=== PATIENT | male | born 1955 ===

== ENCOUNTER 2024-05-13 01:08 | Emergency (ER) | payer MEDICARE, SELFPAY ==
[2024-05-13] VITALS (7 sets, daily range): BP systolic 116–143; BP diastolic 66–100; PULSE 70–97; RESP 13–18; TEMP 36.6; O2SAT 92–98
--- NOTE | ~2024-05-13 | CT_ITS ---
EXAMINATION: CT cervical spine wo con DATE: 05/13/2024 03:22 INDICATION: Head injury. TECHNIQUE: Computed tomography (CT) of the cervical spine was performed without intravenous contrast. Automated exposure control and iterative reconstruction technique were employed. The dose-length pro duct was 556.11 mGy-cm. COMPARISON: None FINDINGS: There is kyphosis of cervical spine. There is 9 degrees dextrocurvature of cervical spine. Vertebral body heights are normal. C1 ring is ununited posteriorly, a normal variant. There is mildly decreased disc height at C3-C4, severely decreased disc height from C4-C5 through C6-C7, and mildly decreased disc height at C7-T1. The following disc levels are specifically discussed: C2-C3: There is no uncovertebral joint osteoarthritis. There is ankylosis of left facet joint with mi ld hypertrophy. There is mild left neural foraminal stenosis. There is no central canal stenosis. C3-C4: There is severe bilateral uncovertebral joint osteoarthritis. There is severe right and mild l eft facet joint osteoarthritis. There is moderate right and mild left neural foraminal stenosis. Ther e is mild central canal stenosis. C4-C5: There is severe bilateral uncovertebral joint osteoarthritis. There is moderate right and mild left facet joint osteoarthritis. There is mild bilateral neural foraminal stenosis. There is mild ce ntral canal stenosis. C5-C6: There is severe bilateral uncovertebral joint osteoarthritis. There is moderate bilateral face t joint osteoarthritis. There is mild right and moderate left neural foraminal stenosis. There is mil d central canal stenosis. C6-C7: There is severe bilateral uncovertebral joint osteoarthritis. There is mild right and moderate left facet joint osteoarthritis. There is moderate bilateral neural foraminal stenosis. There is mil d central canal stenosis. C7-T1: There is mild bilateral uncovertebral joint osteoarthritis. There is moderate right and severe left facet joint osteoarthritis. There is mild left neural foraminal stenosis. There is no central c anal stenosis. IMPRESSION: 1. No fracture. 2. Severe cervical spondylosis. Reviewed, dictated and finalized at location A. CHISE MANAGER
--- NOTE | ~2024-05-13 | CT_ITS ---
EXAMINATION: CT brain wo con DATE: 05/13/2024 03:21 INDICATION: Head injury. TECHNIQUE: Computed tomography (CT) of the head was performed without intravenous contrast. The mA wa s adjusted according to patient size. Iterative reconstruction technique was employed. The dose-lengt h product was 756.67 mGy-cm. COMPARISON: None FINDINGS: There are scattered areas of low attenuation in the cerebral white matter. There is no intr acranial hemorrhage, acute infarction, or abnormal intracranial mass lesion. The ventricles are yodit l in size. There is mucosal thickening in the paranasal sinuses. The mastoid air cells are normal. Th e orbits are normal. IMPRESSION: 1. Moderate nonspecific cerebral white matter disease, which likely represents chronic small vessel i schemic disease. Reviewed, dictated and finalized at location A. E GLAZER IMPRESSION: 1. Moderate nonspecific cerebral white matter disease, which likely represents chronic small vessel ischemic disease.
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
[2024-05-13 05:54] LABS: Ethanol 200 mg/dL (<10)
[2024-05-13 10:12] LABS: Ethanol 128 mg/dL (<10)
--- NOTE | 2024-05-13 11:58 | PC.NURSE ---
Patient's family contacted to take him home, up for discharge now.
--- OUTSIDE RECORDS SUMMARY | 2024-05-19 04:58 | XMS_ITS | Data Portability ---
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 [facility] YESSICA CRAFT Access ion #: [id number] Sex: M : 1954 5 Exam Date: 2020 4:48 PM Exam Name: CT HIP RT WO Admitt ing Diagno sis(es ): FINDIN GS: There is no fractu re involv ing the right hip. The right hip joint is intact . The imaged femur and portio ns of the right hemipe lvis are intact . There is some soft tissue strand ing likely from bruisi ng around the right gluteu s maximu s muscle and latera l hip soft tissue s withou t identi fiable discre te hemorr ale or mass. There is incide ntal note of divert iculos is withou t eviden ce of divert iculit is. IMPRES NELLY: 1. No acute fractu re noted. 2. Mild soft tissue strand ing is seen about the hip likely from bruisi ng. No discre te fluid collec tion is noted. Create d and electr onical ly signed by: Rohit Norwood ch, DO Signed Date: 2020 5:53 PM (CT) Dictat ed by: Rohit Norwood ch, DO DD: 2020 5:53 PM (CT) DT: 2020 5:53 PM (CT) Page 2 of 2 [id number] [facility] (Imaging) [address] [place] [address], [address], 06/25/2022 15:44:46 04/16/20 CT, head, w/o contr ast [facility] [address] [address] [phone] Patibeth t Name: YESSICA CRAFT Access ion #: [id number] Sex: M : 1954 6 Locati on: RA2 Attend ing Physic maura: FELICITA LOUIS CE Orderi ng Physic maura: FELICITA LOUIS CE Exam Date: 2020 4:48 PM Exam Name: CT HEAD WO Admitt ing Diagno sis(es ): RADIOL OGY REPORT - FINAL EXAM: CT HEAD WO HISTOR Y: assaul t COMPAR FAHAD: None TECHNI QUE: Noncon trast axial CT images of the head were perfor med. Sagitt al and slaughter l reform atted images were obtain ed. This CT exam was perfor med using 1 or more of the follow ing dose reduct ion techni ques: Automa mary exposu re contro l, Page 1 of 3 [facility] Patibeth t Name: YESSICA CRAFT Access ion #: [id number] Sex: M : 1954 5 Exam Date: 2020 4:48 PM Exam Name: CT HEAD WO Admitt ing Diagno sis(es ): adjust ment of the mA and/or kv accord ing to patien t size, or the use of iterat renard recons tructi on techni ques. FINDIN GS: Brain: The childs-w jazzmine matter differ entiat ion is within normal limits . There is not eviden ce of edema, enceph alomal acic residu als, residu als of infarc tion, hemorr ale, midlin e shift, or sulcal efface ment. Ventri cles: Midlin e, normal size. Pharmacy Intern ior fossa: Unrema rkable Mastoi d air cells: Aerate d bilate rally. Sinuse s: Unrema rkable as visual ized. Soft tissue s: Unrema rkable . IMPRES NELLY: No CT eviden ce of an acute intrac ranial proces s. Create d and electr onical ly signed by: Rohit Norwood ch, DO Signed Date: 2020 5:45 PM (CT) Page 2 of 3 [facility] t Name: RAINARENERaheem JANICE YESSICA Lisa Access ion #: [id number] Sex: M : 1954 5 Exam Date: 2020 4:48 PM Exam Name: CT HEAD WO Admitt ing Diagno sis(es ): Dictat ed by: Rohit Norwood ch, DO DD: 2020 5:45 PM (CT) DT: 2020 5:45 PM (CT) Page 3 of 3 [id number].[id number] [facility] (Im[facility]) [address] [place], [address], 06/25/2022 15:44:46 04/16/20 CT cervi azalea spine wo contr ast [facility] [address], [place] [address] [facility] Name: YESSICA CRATF Access ion #: [id number] Sex: M : 1954 6 Locati on: RA2 Attend ing Physic maura: FELICITA LOUIS CE Orderi ng Physic maura: FELICITA LOUIS CE Exam Date: 2020 4:48 PM Exam Name: CT C SPINE WO Admitt ing Diagno sis(es ): RADIOL OGY REPORT - FINAL EXAM: CT C SPINE WO; CT T SPINE WO HISTOR Y: assaul t COMPAR FAHAD: None. TECHNI QUE: Noncon trast axial CT images of the cervic al and thorac ic spine were perfor med. Sagitt al and slaughter l reform atted images were obtain ed. This CT exam was perfor med using 1 or more of the follow ing dose reduct ion techni ques: Automa mary exposu re contro l, adjust ment of the mA and/or kv accord ing to patien t size, or the use of iterat renard recons tructi on techni ques. FINDIN GS: No cervic al fractu re, listhe sis, or prever tebral soft tissue edema. The glazier apprentice ior arch of C1 is ununit ed, likely congen ital in nature . Mild Page 1 of 2 [facility] t Name: YESSICA CRAFT Access ion #: [id number] Sex: M : 1954 5 Exam Date: 2020 4:48 PM Exam Name: CT C SPINE WO Admitt ing Diagno sis(es ): degene rative change s are noted throug hout the cervic al and thorac ic spine. This is most signif icant in the cervic al spine at C4-C5 with disc space narrow ing and facet arthro jose manuel. This also seen at C6-C7 with partia lly calcif ied disc osteop hyte comple x with mild forami nal narrow ing. Small Schmor l's nodes with some endpla te spurri ng are noted in the lower thorac ic spine. The lungs are clear. No rib fractu res are noted. The sternu m is intact . IMPRES NELLY: No acute cervic al or thorac ic trauma identi fied. Mild degene rative change s are center ed in the mid to lower cervic al spine. If the patien t is experi encing radicu lar sympto ms consid er cervic al spine MRI. Create d and electr onical ly signed by: Rohit Norwood ch, DO Signed Date: 2020 5:50 PM (CT) Dictat ed by: Rohit Norwood ch, DO DD: 2020 5:50 PM (CT) DT: 2020 5:50 PM (CT) Page 2 of 2 [id number] [facility] ([facility]) [address] [place], [address], 06/25/2022 15:44:46 04/16/[address] thora cic spine wo contr ast [facility] [address] [place] [address] Patien t Name: YESSICA CRAFT Access ion #: [id number] Sex: M : 1954 6 Locati on: RA2 Attend ing Physic maura: FELICITA LOUIS CE Orderi Physic maura: FELICITA LOUIS CE Exam Date: 2020 5:28 PM Exam Name: CT T SPINE WO Admitt ing Diagno sis(es ): RADIOL OGY REPORT - FINAL EXAM: CT C SPINE WO; CT T SPINE WO HISTOR Y: assaul t COMPAR FAHAD: None. TECHNI QUE: Noncon trast axial CT images of the cervic al and thorac ic spine were perfor med. Sagitt al and slaughter l reform atted images were obtain ed. This CT exam was perfor med using 1 or more of the follow ing dose reduct ion techni ques: Automa mary exposu re contro l, adjust ment of the mA and/or kv accord ing to patien t size, or the use of iterat renard recons tructi on techni ques. FINDIN GS: No cervic al fractu re, listhe sis, or prever tebral soft tissue edema. The glazier apprentice ior arch of C1 is ununit ed, likely congen ital in nature . Mild Page 1 of 2 [facility] Patien t Name: YESSICA CRAFT Access ion #: [id number] Sex: M : 1954 6 Exam Date: 2020 5:28 PM Exam Name: CT T SPINE WO Admitt ing Diagno sis(es ): degene rative change s are noted throug hout the cervic al and thorac ic spine. This is most signif icant in the cervic al spine at C4-C5 with disc space narrow ing and facet arthro jose manuel. This also seen at C6-C7 with partia lly calcif ied disc osteop hyte comple x with mild forami nal narrow ing. Small Schmor l's nodes with some endpla te spurri ng are noted in the lower thorac ic spine. The lungs are clear. No rib fractu res are noted. The sternu m is intact . IMPRES NELLY: No acute cervic al or thorac ic trauma identi fied. Mild degene rative change s are center ed in the mid to lower cervic al spine. If the patien t is experi encing radicu lar sympto ms consid er cervic al spine MRI. Create d and electr onical ly signed by: Rohit Norwood ch, DO Signed Date: 2020 5:50 PM (CT) Dictat ed by: Rohit Norwood ch, DO DD: 2020 5:50 PM (CT) DT: 2020 5:50 PM (CT) Page 2 of 2 [id number] [facility] (Im[facility]) [address] [facility], [place], [address], 06/25/2022 15:44:46 07/13/19 24 07/13/2023 US, echoc arnaya gram No observ ation record ed. [email or web address] [facility] [address], [place], [address], 07/14/2023 07:45:23 05/13/19 25 05/13/2024 CT, brain , w/o contr ast No observ ation record ed. [address], [place], [address], 05/13/2024 09:50:26 05/13/19 25 05/13/2024 CT, cervi azalea spine , w/o contr ast No observ ation record ed. [address], [place], [address], 05/13/2024 09:51:10 Result Notes None recorded. Problems Name Problem SNOMED Code Status Onset Date Resolution Date Notes Provider Name and Address Organization Details Recorded Time Disorder of thyroid gland 41277976 Completed Not Available [facility] 3 15:43:42 Hearing loss 42641405 Active 2021 Not Available [facility] 3 15:43:42 Pure hyperchole sterolemia 750176479 Active 2017 Not Available [facility] 3 15:43:42 Disorder of prostate 91938062 Active 2018 Not Available [facility] 3 15:43:42 Hypothyroi dism 95425646 Active Not Available [facility] 3 15:43:42 Posttrauma tic stress disorder 05282970 Active 2021 Not Available [facility] 3 15:43:42 Anxiety 54900063 Active 2021 Not Available [facility] 3 15:43:42 Coronary arterioscl erosis 22228105 Active 2018 Not Available [facility] 3 15:43:42 Essential hypertensi on 54152390 Active 2021 Not Available [facility] 3 15:43:42 Allergic rhinitis 06233834 Active Not Available [facility] 3 15:43:42 Hypersomni a 36894378 Active Not Available [facility] 3 15:43:43 Obstructiv e sleep apnea syndrome 12966023 Active Not Available [facility] 3 15:43:43 Bilateral inguinal hernia 04013729 Active Not Available [facility] 3 15:43:43 Testicular hypofuncti on 898429664 Active 2022 Lowell Louis MD [address], [place], [address] , [facility] [employer] 3 22:51:14 Herpes zoster ophthalmic us 26220164 Active 2022 Lowell Louis MD [address], [place], [address] , [facility] [employer] [facility] 3 12:49:38 Acute bronchitis 52441617 Active 2022 Lowell Louis MD [address], [place], [address] , [employer] [facility] [employer] 3 12:50:03 Problem Notes None recorded. Procedures Surgical History None recorded. Imaging Results Imaging Date Name Status LastModified by Organization Details LastModified Time 09/17/2020 electrocardiogram completed MIGRATION. [id number] Information not available 06/25/2022 15:44:46 09/18/2020 pharmacologic nuclear stress test completed [id number] [facility] [address], [place], [address], 06/25/2022 15:44:46 09/18/2020 US, echocardiogram completed [id number] .[id number] [facility] [address] [place], [address], 06/25/2022 15:44:46 09/18/2020 US, echocardiogram completed [id number] .[id number] [facility] [address] [place], [address], 06/25/2022 15:44:46 09/18/2020 holter monitor completed [id number].[id number] [facility] [address], [place], [address], 06/25/2022 15:44:46 04/16/2021 CT hip wo contrast right completed [id number] [facility] ([facility]) [address] [place], [address], 06/25/2022 15:44:46 04/16/2021 CT, head, w/o contrast completed [id number] [facility] ([facility]) [address] [place], [address], 06/25/2022 15:44:46 04/16/2021 CT cervical spine wo contrast completed [id number] [facility] ([facility]) [address] [place], [address], 06/25/2022 15:44:46 04/16/2021 CT thoracic spine wo contrast completed [id number] [facility] ([facility]) [address] [place], [address], 06/25/2022 15:44:46 07/13/2023 US, echocardiogram completed [address] [facility] [address], [place], [address], 07/14/2023 07:45:23 05/13/2024 CT, brain, w/o contrast completed [address], [address], 05/13/2024 09:50:26 05/13/2024 CT, cervical spine, w/o contrast completed [address], [address], 05/13/2024 09:51:10 Procedure Notes None recorded. Medical Equipment None Reported. Allergies Allergen ID Allergen Name Allergen Category Reaction Reaction Severity Criticality Documentation Date Start Date Code Code System Note Provider Name and Address Organization Details Recorded Time 44390 red dye food,medi cation Not available Not available Not available 06/25/2022 UNK swell ing Not Available [facility] 15:44:45 97964 methaqual one Not available edema Not available Not available 06/25/2022 6823 RxNorm Not Available [facility] 15:44:45 88916 azithromy ijeoma medicatio n hives Not available Not available 06/25/2022 34734 RxNorm Not Available [facility] 3 15:44:45 Medications Name Sig Start Date Stop Date Status Note LastModified by Organization Details LastModified Time amoxicillin 500 mg capsule TAKE 1 CAPSULE BY MOUTH THREE TIMES DAILY active Not Available Not Available No t Available atorvastati n 40 mg tablet TAKE 1 TABLET BY MOUTH EVERY DAY active Not Available Not Available No t Available doxycycline hyclate 100 mg capsule Take 1 capsule twice a day by oral route. 09/23 completed Not Available Not Available Not Available paroxetine 10 mg tablet Take 1 tablet every day by oral route. 05/16 completed Not Available Not Available Not Available clindamycin HCl 300 mg capsule Take 1 capsule every 6 hours by oral route. 09/23 completed Not Available Not Available Not Available benzonatate 200 mg capsule TK ONE C PO TID 11/09 completed Not Available Not Available Not Available valacyclovi r 1 gram tablet TAKE 1 TABLET BY MOUTH THREE TIMES DAILY active Not Available Not Available No t Available acetazolami de 250 mg tablet TAKE DIRECTED active Not Available Not Available No t Available clopidogrel 75 mg tablet 11/09 completed Not Available Not Available Not Available aspirin 81 mg tablet,dann yed release Take 1 tablet every day by oral route. 2019 active Not Available Not Available Not Avai lable levothyroxi ne 100 mcg tablet TK ONE T PO D 11/09 completed Not Available Not Available Not Available hydrocortis one 2.5 % topical cream with perineal applicator APPLY THIN LAYER TOPICALLY TO THE AFFECTED AREA 2 TO 4 TIMES DAILY active Not Available Not Available No t Available meclizine 25 mg tablet TAKE 1 TABLET BY MOUTH THREE TIMES DAILY NEEDED active Not Available Not Available No t Available baclofen 10 mg tablet Take 1 tablet 4 times a day by oral route. active Not Available Not Available No t Available dexamethaso ne 2 mg tablet TAKE 2 TABLETS BY MOUTH EVERY 4 TO 8 HOURS NEEDED active Not Available Not Available No t Available cephalexin 500 mg capsule 11/09 completed Not Available Not Available Not Available paroxetine 20 mg tablet TAKE 1 TABLET BY MOUTH EVERY DAY 05/16 completed Not Available Not Available Not Available levothyroxi ne 125 mcg tablet TAKE 1 TABLET BY MOUTH EVERY DAY active Not Available Not Available No t Available losartan 25 mg tablet Take 1 tablet every day by oral route. active Not Available Not Available No t Available Transderm-S epic kaleidoscope analyst 1 mg over 3 days transdermal patch 11/09 completed Not Available Not Available Not Available lorazepam 1 mg tablet TAKE 1 TABLET BY MOUTH THREE TIMES DAILY NEEDED FOR ANXIETY active Not Available Not Available No t Available Viagra 100 mg tablet 11/09 completed Not Available Not Available Not Available testosteron e cypionate 200 mg/mL intramuscul ar oil INJECT 1 ML IN THE MUSCLE EVERY 14 DAYS active Not Available Not Available No t Available levofloxaci n 750 mg tablet 11/09 completed Not Available Not Available Not Available methylpredn isolone 4 mg tablets in a dose pack As directed active Not Available Not Available No t Available albuterol sulfate HFA 90 mcg/actuati on aerosol inhaler INHALE 2 PUFFS EVERY 4 TO 6 HOURS NEEDED active Not Available Not Available No t Available colchicine 0.6 mg tablet TAKE 1 TABLET BY MOUTH EVERY DAY active Not Available Not Available No t Available cefdinir 300 mg capsule TAKE ONE CAPSULE BY MOUTH TWICE DAILY active Not Available Not Available No t Available fluticasone propionate 50 mcg/actuati on nasal spray,suspe nsion USE DIRECTED 11/09 completed Not Available Not Available Not Available lisinopril 2.5 mg tablet 11/09 completed Not Available Not Available Not Available levothyroxi ne 112 mcg tablet TAKE 1 TABLET BY MOUTH EVERY DAY 02/01 completed Not Available Not Available Not Available amoxicillin 875 mg-potassiu m clavulanate 125 mg tablet Take 1 tablet every 12 hours by oral route for 10 days. 11/09 completed Not Available Not Available Not Available amoxicillin 500 mg-potassiu m clavulanate 125 mg tablet 11/09 completed Not Available Not Available Not Available Ciprodex 0.3 %-0.1 % ear drops,suspe nsion active Not Available Not Available Not Available Wellbutrin XL 150 mg 24 hr tablet, extended release Take 1 tablet every day by oral route. 2024 active Not Available Not Available Not Avai lable Multivitami n 50 Plus tablet Take 1 tablet every day by oral route. 2019 active Not Available Not Available Not Avai lable tadalafil 20 mg tablet TAKE 1 TABLET (20 MG) BY ORAL ROUTE ONCE DAILY active Not Available Not Available No t Available metoprolol tartrate 25 mg tablet 11/09 completed Not Available Not Available Not Available Effient 10 mg tablet TK ONE T PO D 11/09 completed Not Available Not Available Not Available Vitals Date Recorded Body mass index (BMI) Body height Heart rate Respiratory rate Body temperature Body weight Systolic blood pressure Diastolic blood pressure Provider Name and Address Organization Details Last Updated DateTime 1 25.7 kg/m2 177.8 cm 86 /min 12 /min 97.3 [degF] 79228.0 3 g 126 mm[Hg] 82 mm[Hg] Not Available [facility] 3 15:43:35 Date Recorded Body mass index (BMI) Body height Oxygen saturation Oxygen saturation in Arterial blood by Pulse oximetry Heart rate Body temperature Body weight Systolic blood pressure Diastolic blood pressure Provider Name and Address Organization Details Last Updated DateTime 1 25.7 kg/m2 177.8 cm 97 % 97 % 99 /min 98.6 [degF] 81989.0 3 g 180 mm[Hg] 100 mm[Hg] Not Available [facility] 3 15:43:35 Date Recorded Body height Provider Name an d Address Organization Details Last Updated DateTime 05/24/2021 177.8 cm Not Available [facility] 3 15:43:35 Date Recorded Body height Body mass index (BMI) Body weight Heart rate Body temperature Oxygen saturation Oxygen saturation in Arterial blood by Pulse oximetry Systolic blood pressure Diastolic blood pressure Provider Name and Address Organization Details Last Updated DateTime 4 173.99 cm 27.6 kg/m2 39536 g 77 /min 97.5 [degF] 95 % 95 % 124 mm[Hg] 82 mm[Hg] VASQUEZ [place] [facility] 4 14:43:01 Social History Question Answer Notes LastModified by Organizat ion Details LastModified Time 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 Mental Status None recorded. Family History Nothing Reported. Medical History Condition Response BLINDNESS N NERVE DISEASE N RHEUMATIC FEVER N BLADDER PROBLEMS N KIDNEY STONES N MRSA N OTHER # 1 N POLIO N LUNG DISEASE/DISORDER N HISTORY OF DRUG ABUSE N RADIATION / CHEMOTHERAPY N COPD N Other # 2 N BLOOD DISEASES N EAR OR HEARING PROBLEMS N MUMPS N SHINGLES N BOWEL PROBLEMS N DEPRESSION (INCLUDING POST ) N STROKE/TIA N ULCERS N BENIGN PROSTATIC HYPERPLASIA N MEASLES N HYPOTENSION N MYOCARDIAL INFARCTION N OBESITY N GERD/NAUSEA N ANEURYSM N URINARY/BLADDER/KIDNEY PROBLEMS N CORONARY ARTERY DISEASE (CAD) N ADDICTION CONCERNS N Impotence N ENDOMETRIOSIS N USE OF BLOOD THINNERS N SKIN PROBLEMS N GASTROINTESTINAL DISORDER N PERIPHERAL VASCULAR DISEASE N MUSCLE,JOINT OR BONE PROBLEMS N GASTROINTESTINAL BLEEDING N BLOOD CLOTS N ASTHMA N CATARACTS N ERECTILE DYSFUNCTION N VARICOSITIES N GI PROBLEMS N Low Testosterone N INFERTILITY N AIDS/HIV N CHEMOTHERAPY / RADIATION N LIVER DISEASE N MALE HYPOGONADISM N HYPERTENSION N Deficiency N TOURETTE'S N ANXIETY DISORDER N BLOOD TRANSFUSION N ANEMIA/BLOOD DISORDER N CHRONIC EAR INFECTIONS N BRONCHITIS N TUBERCULOSIS N GLAUCOMA N FOOT PROBLEM N DIVERTICULITIS N SLEEP APNEA N CHICKENPOX N INFECTIOUS DISEASE N PROSTATE N HEART ARRHYTHMIA N INSOMNIA N HIGH CHOLESTEROL / HYPERLIPIDEMIA N EYE PROBLEMS N HYPERTHYROIDISM N EDEMA N CHRONIC PAIN SYNDROME N HYPOTHYROIDISM N CONSTIPATION N CAROTID BLOCKAGE N BACK / NECK PROBLEMS N HAVE YOU BEEN HOSPITALIZED OR SEEN IN [facility] IN THE PAST YEAR ? N ATHEROSCLEROSIS N BREAST PROBLEMS N DIALYSIS N ECZEMA N OSTEOPOROSIS N ARTHRITIS N NO SIGNIFICANT PAST MEDICAL HISTORY N APPENDICITIS N DIABETES, TYPE N BAD TEETH N ENT N HEARTBURN / REFLUX N AUTISM SPECTRUM DISORDER (ASD) N HEPATITIS / LIVER DISEASE N GOUT N SLEEP DISORDER N ALZHEIMER'S DISEASE N Brain Problems N DEMENTIA N HERPES N SEIZURES/EPILEPSY N HEADACHES/MIGRAINES N VASCULAR DISEASE N PACEMAKER N Blood Disorder N DIZZINESS N HEART DISEASE/HEART PROBLEMS N KIDNEY DISEASE N MULTIPLE SCLEROSIS N CANCER: SPECIFY N CARDIAC ARRHYTHMIA N ATRIAL FIBRILLATION N Gall Stones N PULMONARY EMBOLISM N AUTOIMMUNE DISEASE N Immunizations Vaccine Type Date Status Note Provider Nam e and Address Organization Details Recorded Time SARS-COV-2 (COVID-19) vaccine, UNSPECIFIED 1 completed Not Available [facility] 06/25/2022 15:44:44 SARS-COV-2 (COVID-19) vaccine, UNSPECIFIED 1 completed Not Available [facility] 06/25/2022 15:44:44 Past Encounters Encounter ID Performer Location Encounter Start Date Encounter Closed Date Diagnosis/Indication Diagnosis SNOMED-CT Code Diagnosis ICD10 Code Diagnosis Note [id number] [facility] [place] Internal Med [facility] [address], [address] [place] [address] 09/17/2020 00:00:00 09/17/2020 12:21:29 [id number] [facility] [place] Internal Med Balbina ibrahim [address] [place] [address] [place] [address] 04/16/2021 00:00:00 04/16/2021 19:35:58 [id number] [facility] – [place] Internal Med Balbina ibrahim [address] [place] [address] [place] [address] 05/24/2021 00:00:00 05/24/2021 17:37:09 [id number] Lowell Louis MD [facility] Internal Med Brenton alexandria [address] [place] [address] [place] [address] 09/24/2023 14:31:18 09/24/2023 15:07:09 Pure hypercholesterolemia [id number] E78.00 Hypothyroidism 17519682 E03.9 Essential hypertension 68818299 I10 Coronary arteriosclerosis [id number] I25.10 Health Concerns Section Related Observation LastModified by Organization Detai ls LastModified Time None Recorded Concern Status LastModified by Organization Details LastModified Time None Recorded Advance Directives Directive None Recorded Payers Encounter Date Sequence Insurance Name Policy Number Policy [place] Covered Member ID [place] Member ID Guarantor Name 09/24/2023 1 [place] Yessica Pina [id number] Yessica Pina 09/24/2023 2 [place] [id number] Yessica Pina [id number] Yessica Pina Notes Date Note Type Note Provider Name and Address Organization Details Recorded Time 09/24/2023 text/html Patient Name: Yessica BarkercorinaDate Of Service: August ( 09.24.2023 ): 1955 Age: 68 Vital Signs:Blood Pressure: Sitting Rt. Arm 124/82Pulse: Sitting 77 /min and RegularRespiratory Rate: 12Height 68.5 in or 1.7 mWeight 184 lb or 83.5 kgBMI 27.6Temperature: 97.2 F or 36.2 CPulse Oximetry: 95 % at rest on no oxygen Chief Complaint: Addressed in HPI Problems or conditions discussed in the HPI were the only ones reviewed during the encounter.Only social and family history addressed in the HPI were reviewed during this encounter. Attendant(s): NoneConstitutional and Systemic Symptoms:none Medication Reconciliation: from medication list. History of Present Illness #1. Coronary Artery Disease: There has been no change in frequency - duration - intensity in frequency, duration or intensity of chest pain. Other Complaints: none The frequency of anginal attacks is none at all. Additional Symptoms: none Therapy reviewed regarding cardiovascular management includes Aspirin, Atorvastatin Calcium and Losartan Potassium #2. Essential Hypertension: Stage: Stage I Interval Neurological Complaints no headaches, dizziness, weakness, visual changes, ataxia, aphasia and apraxia. No shortness of breath, orthopnea or cardiovascular symptoms. No other symptoms related to end organ damage. Pressure has been under excellent control. Currently normal. No other end organ symptoms or findings. Therapy reviewed regarding management of hypertension and includes salt restriction and Losartan Potassium. #3. Type II Hypercholesterolaemia: Currently taking medication and tolerating well. No interval complaints of any muscle pain or arthralgia. No significant liver changes with medications. Last lipid panel: fair control. Therapy reviewed regarding treatment of cholesterol management and include diet and Atorvastatin Calcium. #4. Hx of hypothyroidism currently stable. Heat intolerance: no Fatigue: no Weight gain: no Difficulty concentrating: no Muscle Symptoms: none Skin Texture: normal Skin Color: normal Currently taking synthroid. Active Medication ListLorazepam 1 MG TABLET One TidParoxetine Hydrochloride 20 MG TABLET, FILM COATED One DailyAtorvastatin Calcium 40 MG (TABLET - ORAL) Take One Tablet DailyAspirin 81 MG Once DailyLevothyroxine 0.125 MG (TABLET - ORAL) One DailyMultivitamin DailyLosartan Potassium 25 MG (TABLET - ORAL) One DailyColchicine 0.6 mg daily Adverse Drug Reactions ReviewedZithromax Edema Social HistoryFamily History Lowell Louis MD [address] [facility], [facility] [address], [place], [address], [place] [facility] 09/24/2023 15:19:15
== END 2024-05-13 12:43 | disposition home or self-care (01) ==
PROVIDERS: Emergency Medicine; Emergency Provider Emergency Medicine; PCP Internal Medicine
DX: S00.03XA Contusion of scalp, initial encounter (principal); F10.129 Alcohol abuse with intoxication, unspecified; Y90.7 Blood alcohol level of 200-239 mg/100 ml; I25.10 Atherosclerotic heart disease of native coronary artery without angina pectoris; E07.9 Disorder of thyroid, unspecified; R90.82 White matter disease, unspecified; M47.812 Spondylosis without myelopathy or radiculopathy, cervical region; W00.0XXA Fall on same level due to ice and snow, initial encounter
CPT/HCPCS: 36415; 70450; 72125; 82077; 96372; 96374; 99284; J1630; J2060